=== PATIENT | female | born 1980 | race Caucasian/White ===

== ENCOUNTER → 2017-06-29 | Outpatient (CLI) | payer BC | LOC: FIMAGING 11:30 | DX: Z71.9 Counseling, unspecified (principal); Z85.3 Personal history of malignant neoplasm of breast ==

== ENCOUNTER → 2017-10-27 | Outpatient (CLI) | payer BC | LOC: FIMAGING 13:19 | PROVIDERS: ATTEND Obstetrics & Gynecology | DX: O09.512 Supervision of elderly primigravida, second trimester (principal); Z3A.19 19 weeks gestation of pregnancy ==